=== PATIENT | male | born 1960 | race Caucasian/White ===

== ENCOUNTER 2016-12-29 21:41 | Emergency (ER) | payer OTHER ==
[2016-12-29 21:59] VITALS: BP 147/83; PULSE 97; TEMP 98.2; BMI 28.8
[2016-12-30] MEDS ORDERED: AZITHROMYCIN 250 MG TABLET (FP) PO ONE (00:14)
--- NOTE | 2016-12-30 00:19 | PDOC ---
History of Present Illness - General Chief Complaint: Cold Symptoms Stated Complaint: COLD SYMPTOMS Time Seen by Provider: 12/29/16 22:56 History Source: Patient Exam Limitations: No Limitations - History of Present Illness Initial Comments: 12/30/16 00:14 56yo Male patient w/ PmHx: HTN, presents to ED c/o cough x 5 days with scratchy throat and reportedly subjective fever. Patient reports daughter at home with similar symptoms. Denies n/v/d, CP, Abd pain, Diff breathing, back pain, or any other complaints at this time. Timing/Duration: reports: week Severity: reports: mild Possible Cause: Yes: illness exposure Modifying Factors: worse with: activity, albuterol inhaler, albuterol nebulizer , antibiotics, coughing, lying down, oxygen, rest, other Associated Symptoms: reports: cough, nasal congestion, sore throat. denies: denies symptoms, chest pain/soreness, dizziness, earache, facial pain, fever/ chills, headache, lightheadedness, muscle aches, nasal drainage, shortness of breath, sinus infection, wheezing, other Past History - Travel Traveled outside of the country in the last 30 days: No Close contact w/someone who was outside of country & ill: No - Past Medical History Allergies/Adverse Reactions: Allergies Allergy/AdvReac Type Severity Reaction Status Date / Time No Known Allergies Allergy Verified 12/29/16 21:56 Home Medications: Ambulatory Orders Amlodipine Besylate [Norvasc -] 5 mg PO DAILY 12/29/16 Lisinopril [Prinivil] 20 mg PO DAILY 12/29/16 Azithromycin [Zithromax -] 250 mg PO DAILY #4 tablet 12/30/16 Budesonide [Rhinocort Allergy] 1 spray NS DAILY #1 spray.pump 12/30/16 GI Disorders: Yes (hernia) HTN: Yes - Psycho/Social/Smoking Cessation Hx Anxiety: No Suicidal Ideation: No Smoking History: Never smoked Number of Cigarettes Smoked Daily: 0 Information on smoking cessation initiated: No Hx Alcohol Use: No Drug/Substance Use Hx: No Substance Use Type: None Respiratory Specific PMHX - Complaint Specific PMHX Angina: No Bronchitis: No Pneumonia: No Pulmonary Embolus: No TB (Tuberculosis): No Review of Systems - Review of Systems Able to Perform ROS?: Yes Is the patient limited Tristanian proficient: No Constitutional: Yes: Fever (subjective). No: Chills HEENTM: Yes: Nose Congestion, Throat Pain. No: Ear Discharge, Throat Swelling, Difficulty Swallowing, Mouth Swelling Respiratory: Yes: Cough. No: Shortness of Breath, Stridor, Wheezing, Hemoptysis Cardiac (ROS): No: Chest Pain, Lightheadedness, Palpitations, Syncope, Chest Tightness ABD/GI: No: Diarrhea, Nausea, Vomiting Musculoskeletal: No: Back Pain Integumentary: No: Rash Neurological: No: Headache, Dizziness All Other Systems: Reviewed and Negative *Physical Exam - Vital Signs Last Vital Signs Temp Pulse Resp BP Pulse Ox 98.2 F 97 H 16 147/83 98 12/29/16 21:57 12/29/16 21:57 12/29/16 21:57 12/29/16 21:57 12/29/16 21:57 - Physical Exam General Appearance: Yes: Nourished, Appropriately Dressed. No: Apparent Distress, Mild Distress, Moderate Distress, Severe Distress HEENT: positive: EOMI, ANGELINA, Normal ENT Inspection, Normal Voice, Symmetrical, TMs Normal, Pharynx Normal, Nasal Congestion. negative: Pharyngeal Erythema, Tonsillar Exudate, Tonsillar Erythema, Rhinorrhea, TM Bulging, TM Dull, TM Erythema Neck: positive: Trachea midline, Supple. negative: Stridor, Lymphadenopathy (R) , Lymphadenopathy (L) Respiratory/Chest: positive: Lungs Clear, Normal Breath Sounds. negative: Respiratory Distress, Accessory Muscle Use, Labored Respiration, Rapid RR Cardiovascular: positive: Regular Rhythm, Regular Rate Gastrointestinal/Abdominal: positive: Normal Bowel Sounds, Soft. negative: Distended, Guarding, Rebound, Tenderness Musculoskeletal: positive: Normal Inspection. negative: CVA Tenderness Extremity: positive: Normal Capillary Refill, Normal Inspection, Normal Range of Motion. negative: Pedal Edema, Swelling, Erythema, Inflammation Integumentary: positive: Normal Color, Dry, Warm. negative: Rash, Swelling, Bruising Neurologic: positive: kick boxer II-XII NML intact, Fully Oriented, Alert, Normal Mood/ Affect, Normal Response, Motor Strength 5/5 *DC/Admit/Observation/Transfer Diagnosis at time of Disposition: Acute viral pharyngitis Allergic rhinitis Qualifiers: Allergic rhinitis trigger: unspecified Allergic rhinitis seasonality: seasonal Qualified Code(s): J30.2 - Other seasonal allergic rhinitis - Discharge Dispostion Disposition: HOME Condition at time of disposition: Stable Admit: No - Prescriptions Prescriptions: Budesonide [Rhinocort Allergy] 1 spray NS DAILY #1 spray.pump Azithromycin [Zithromax -] 250 mg PO DAILY #4 tablet - Patient Instructions Printed Discharge Instructions: DI for Viral Upper Respiratory Infection -- Adult, DI for Allergic Rhinitis Additional Instructions: FOLLOW UP WITH DR. PLATT THIS WEEK. CALL TO SCHEDULE APPOINTMENT. TAKE MEDICATIONS PRESCRIBED. DRINK PLENTY FLUIDS (WATER). RETURN IF YOUR SYMPTOMS WORSEN OR ANY CONCERNS FOR FURTHER EVALUATION. Print Language: HUNGARIAN
[2016-12-30] MEDS ORDERED: AZITHROMYCIN 250 MG TABLET (FP) ONE (00:33)
== END 2016-12-30 00:38 | disposition home or self-care (01) ==
LOC: JER 21:41
DX: J30.2 Other seasonal allergic rhinitis (principal); J02.9 Acute pharyngitis, unspecified
CPT/HCPCS: 99282-25

== ENCOUNTER 2018-08-24 04:31 | Emergency (ER) | payer OTHER ==
[2018-08-24 06:40] VITALS: BMI 29.7
--- NOTE | 2018-08-24 07:44 | PDOC ---
History of Present Illness - History of Present Illness Initial Comments: This patient is a 58 year old Nepali speaking male with PMHx of HTN, who presents with lightheadedness. Patient states that for the past week he was feeling down so he made an appointment to see his PMD yesterday who noted his blood pressure was a little high and put him on new medication (Lisinopril 100 mg & medication for depression). He stated that he feels lightheaded/ off- balance when he brings his head down then back up. He also endorses associated blurry vision during his dizzy spells. He states that what brought him to the ED was when he got up to pee at around 3:30 in the morning and felt lightheaded. He also notes that sometimes after urinating he still has the urge to pee. He currently states that he feels a little weak and anxious but denies any chest pain. Denies any blood per rectum or bladder. PCP: Juanita Tsai 08/24/18 10:29 <Verena Hirsch - Last Filed: 08/24/18 10:29> <Kike Tavares - Last Filed: 08/24/18 11:27> - General Chief Complaint: Blood Pressure Problem Stated Complaint: BLOOD PRESSURE PROBLEM Time Seen by Provider: 08/24/18 07:43 Past History <Verena Hirsch - Last Filed: 08/24/18 10:29> - Past Medical History GI Disorders: Yes (hernia) HTN: Yes - Immunization History Immunization Up to Date: Yes - Suicide/Smoking/Psychosocial Hx Smoking History: Never smoked Have you smoked in the past 12 months: No Number of Cigarettes Smoked Daily: 0 Information on smoking cessation initiated: No Hx Alcohol Use: No Drug/Substance Use Hx: No Substance Use Type: None <Kike Tavares - Last Filed: 08/24/18 11:27> - Past Medical History Allergies/Adverse Reactions: Allergies Allergy/AdvReac Type Severity Reaction Status Date / Time No Known Allergies Allergy Verified 08/24/18 06:39 Home Medications: Ambulatory Orders Lisinopril [Prinivil] 20 mg PO DAILY 12/29/16 Review of Systems - Review of Systems Comments:: CONSTITUTIONAL: No fever, no chills, no fatigue EYES: +blurry vision ENT: No ear pain, no sore throat CARDIOVASCULAR: No chest pain, RESPIRATORY: No cough, no SOB GI: No abdominal pain, no nausea, no vomiting, no constipation, no diarrhea GENITOURINARY: +frequent urge. No dysuria, no frequency, no hematuria MUSKULOSKELETAL: +back pain (chronic - scoliosis) , no joint pain, no myalgias SKIN: No rash NEURO: +dizziness, +headache <Verena Hirsch - Last Filed: 08/24/18 10:29> *Physical Exam - Vital Signs Last Vital Signs Temp Pulse Resp BP Pulse Ox 98.0 F 92 H 18 151/76 100 08/24/18 04:31 08/24/18 04:31 08/24/18 04:31 08/24/18 04:31 08/24/18 04:31 - Physical Exam Comments: CONSTITUTIONAL: Well-appearing; well-nourished; in no apparent distress HEAD: Normocephalic; atraumatic EYES: PERRL; EOM intact ENMT: External appears normal; normal oropharynx CARD: Normal S1, S2; no murmurs, rubs, or gallops RESP: Normal chest excursion with respiration; breath sounds clear and equal bilaterally; no wheezes, rhonchi, or rales ABD: Soft, non-distended; non-tender; no palpable organomegaly, no palpable hernias EXT: Normal ROM in all four extremities; non-tender to palpation; distal pulses intact SKIN: Warm, dry, no rash NEURO: No focal neurological deficiencies. 08/24/18 10:26 <Verena Hirsch - Last Filed: 08/24/18 10:29> - Vital Signs Last Vital Signs Temp Pulse Resp BP Pulse Ox 98.0 F 92 H 18 151/76 100 08/24/18 04:31 08/24/18 04:31 08/24/18 04:31 08/24/18 04:31 08/24/18 04:31 <Kike Tavares - Last Filed: 08/24/18 11:27> Moderate Sedation - Procedure Monitoring Vital Signs: Procedure Monitoring Vital Signs Temperature 98.0 F 08/24/18 04:31 Pulse Rate 92 H 08/24/18 04:31 Respiratory Rate 18 08/24/18 04:31 Blood Pressure 151/76 08/24/18 04:31 O2 Sat by Pulse Oximetry (%) 100 08/24/18 04:31 <Verena Hirsch - Last Filed: 08/24/18 10:29> - Procedure Monitoring Vital Signs: Procedure Monitoring Vital Signs Temperature 98.0 F 08/24/18 04:31 Pulse Rate 92 H 08/24/18 04:31 Respiratory Rate 18 08/24/18 04:31 Blood Pressure 151/76 08/24/18 04:31 O2 Sat by Pulse Oximetry (%) 100 08/24/18 04:31 <Kike Tavares - Last Filed: 08/24/18 11:27> Heart Score/ECG Review - ECG Intrepretation Comment:: EKG Interpretation -- taken on 24-Aug-2018 at 8:40:16 Vent. rate 80 bpm Normal sinus rhythm T wave abnormality 08/24/18 09:51 <Verena Hirsch - Last Filed: 08/24/18 10:29> ED Treatment Course - LABORATORY CBC & Chemistry Diagram: 08/24/18 08:20 08/24/18 08:20 - ADDITIONAL ORDERS Additional order review: 08/24/18 08:20 RBC 4.86 MCV 85.0 MCHC 33.4 RDW 12.7 MPV 10.5 Neutrophils % 65.4 Lymphocytes % 25.8 D Monocytes % 6.3 Eosinophils % 1.3 Basophils % 1.2 D <Verena Hirsch - Last Filed: 08/24/18 10:29> - LABORATORY CBC & Chemistry Diagram: 08/24/18 08:20 08/24/18 08:20 <Kike Tavares - Last Filed: 08/24/18 11:27> Medical Decision Making - Medical Decision Making 08/24/18 11:24 Patient is a well-appearing 58-year-old male who presents to the ER with several episodes of dizziness upon rising from supine position consistent with orthostasis. Patient also complains of generalized weakness and malaise associated with generalized anxiety. Patient was recently seen and evaluated by his primary care physician prescribed fluoxetine as well as lisinopril/ hydrochlorothiazide. In the ER, patient is asymptomatic without focal neurological deficits. CBC reveals no evidence of anemia. CMP reveals no evidence of significant electrolyte abnormalities. EKG is normal sinus without evidence of LVH or acute dysrhythmia. Inverted T waves in 3 and aVF are noted of unknown duration. Patient's symptoms are not consistent with ACS or PE. I don 't believe cardiac enzyme testing is indicated at this time. Patient is advised to maintain a blood pressure log and allow for several moments of the declination when standing from a lying position. Will discharge with cardiology and PMD follow-up further investigation. <Kike Tavares - Last Filed: 08/24/18 11:27> *DC/Admit/Observation/Transfer - Attestations Scribe Attestion: 08/24/18 09:12 Documentation prepared by Verena Hirsch, acting as medical collections specialist for Kike Tavares MD. <Verena Hirsch - Last Filed: 08/24/18 10:29> - Attestations Physician Attestion: 08/24/18 11:24 The documentation was prepared by the scribe under my direct supervision. I have reviewed the documentation which correctly represents the findings, medical decision-making and critical action taken by me. <Kike Tavares - Last Filed: 08/24/18 11:27> Diagnosis at time of Disposition: Dizziness, Weakness - Discharge Dispostion Disposition: HOME Condition at time of disposition: Stable - Referrals Referrals: Patrice Martínez MD [Staff Physician] - - Patient Instructions Printed Discharge Instructions: DI for Dizziness-Nonvertigo - Post Discharge Activity
[2018-08-24 08:48] LABS: BASO % 1.2 % (0-2.0); EOS % 1.3 % (0-4.5); HEMATOCRIT 41.3 % (35.4-49); HEMOGLOBIN 13.8 GM/dL (11.7-16.9); LYMPH % 25.8 % (8-40); MCH 28.4 pg (25.7-33.7); MCHC 33.4 g/dl (32.0-35.9); MEAN PLT VOLUME 10.5 fl (7.5-11.1); MONO % 6.3 % (3.8-10.2); NEUT % 65.4 % (42.8-82.8); PLATELET COUNT 228 K/MM3 (134-434); RBC 4.86 M/mm3 (4.00-5.60); RDW 12.7 % (11.9-15.9); WHITE BLOOD COUNT 9.4 K/mm3 (4.0-10.0)
[2018-08-24 09:16] VITALS: BP 152/84; PULSE 83; TEMP 98.7
[2018-08-24 09:21] LABS: ALBUMIN 4.2 g/dl (3.4-5.0); ALK PHOS 100 U/L (45-117); ANION GAP 8 MMOL/L (8-16); BILIRUBIN,TOTAL 0.7 mg/dL (0.2-1); BLOOD UREA NITROGEN 12 mg/dL (7-18); CALCIUM 8.8 mg/dL (8.5-10.1); CHLORIDE 103 mmol/L (98-107); CO2 27 mmol/L (21-32); CREATININE 1.1 mg/dL (0.55-1.3); GLUCOSE,RANDOM 167 mg/dL (74-106); MAGNESIUM 2.3 mg/dL (1.8-2.4); SGOT/AST 14 U/L (15-37); SGPT/ALT 29 U/L (13-61); SODIUM 138 mmol/L (136-145); TOT PROT 7.6 g/dl (6.4-8.2)
--- NOTE | 2018-08-24 11:40 | EKG ---
Test Reason : Blood Pressure : / mmHG Vent. Rate : 080 BPM Atrial Rate : 080 BPM P-R Int : 138 ms QRS Dur : 082 ms QT Int : 366 ms P-R-T Axes : 043 003 -18 degrees QTc Int : 422 ms NORMAL SINUS RHYTHM T WAVE ABNORMALITY, CONSIDER INFERIOR ISCHEMIA ABNORMAL ECG NO PREVIOUS ECGS AVAILABLE Confirmed by GILBERT FRYE MD ([id number]) on 08/24/2018 11:40:06 AM Referred By: Confirmed By:GILBERT FRYE MD
== END 2018-08-24 11:58 | disposition home or self-care (01) ==
LOC: JER 04:31
DX: R42 Dizziness and giddiness (principal); R53.1 Weakness; I10 Essential (primary) hypertension
CPT/HCPCS: 36415; 80053; 83735; 85025; 93005; 93010; 99281-25

== ENCOUNTER 2022-01-04 11:59 | Emergency (ER) | payer OTHER ==
[2022-01-04 12:24] VITALS: BP 148/74; PULSE 91; TEMP 100.4; BMI 28.1
[2022-01-04] MEDS ORDERED: ACETAMINOPHEN 1000 MG/100 ML BAG IVPB ONE (12:58)
[2022-01-04] MEDS ORDERED: SODIUM CHLORIDE 0.9% 500 ML INFUS.BAG IV ONE (12:58)
[2022-01-04 13:27] LABS: URINE APPEARANCE CLEAR; URINE BILIRUBIN NEGATIVE (NEGATIVE); URINE COLOR YELLOW; URINE GLUCOSE (UA) NEGATIVE (NEGATIVE); URINE KETONE NEGATIVE (NEGATIVE); URINE LEUK ESTERASE NEGATIVE (NEGATIVE); URINE NITRITE NEGATIVE (NEGATIVE); URINE PROTEIN NEGATIVE (NEGATIVE); URINE UROBILINOGEN 0.2 mg/dL (0.2-1.0)
[2022-01-04 13:28] LABS: BASO % 0.6 % (0-2.0); EOS % 0.3 % (0-4.5); HEMOGLOBIN 14.7 GM/dL (11.7-16.9); LYMPH % 14.7 % (8-40); MCH 29.8 pg (25.7-33.7); MCHC 34.1 g/dl (32.0-35.9); MEAN CELL VOLUME 87.4 fl (80-96); MEAN PLT VOLUME 9.9 fl (7.5-11.1); MONO % 7.2 % (3.8-10.2); NEUT % 77.2 % (42.8-82.8); PLATELET COUNT 175 10^3/uL (134-434); RBC 4.92 M/mm3 (4.00-5.60); RDW 13.1 % (11.9-15.9); WHITE BLOOD COUNT 8.1 K/mm3 (4.0-10.0)
[2022-01-04 13:49] LABS: ALBUMIN 3.5 g/dl (3.4-5.0); BLOOD UREA NITROGEN 11.8 mg/dL (7-18); CALCIUM 8.1 mg/dL (8.5-10.1)
[2022-01-04] MEDS ORDERED: ACETAMINOPHEN INJECTION 100 ML IVPB ONE (13:51)
[2022-01-04 13:53] LABS: BILIRUBIN,TOTAL 2.7 mg/dL (0.2-1); CREATININE 1.1 mg/dL (0.55-1.3); TOT PROT 6.8 g/dl (6.4-8.2)
== END 2022-01-04 15:25 | disposition home or self-care (01) ==
LOC: JER 11:59
PROC: 3E033GC Introduction of Other Therapeutic Substance into Peripheral Vein, Percutaneous Approach (ICD-10-PCS; principal; 2022-01-04)
DX: R25.2 Cramp and spasm (principal)
CPT/HCPCS: 36415; 80053; 81003; 85025; 87086; 99284-25

== ENCOUNTER 2023-10-24 12:51 | Emergency (ER) | payer OTHER ==
[2023-10-24 12:58] VITALS: TEMP 98.7
[2023-10-24 14:35] LABS: BASO % 0.9 % (0-2.0); EOS % 0.3 % (0-4.5); HEMATOCRIT 42.9 % (35.4-49); HEMOGLOBIN 14.4 GM/dL (11.7-16.9); LYMPH % 14.9 % (8-40); MCH 29.2 pg (25.7-33.7); MCHC 33.7 g/dl (32.0-35.9); MEAN CELL VOLUME 86.7 fl (80-96); MEAN PLT VOLUME 10.5 fl (7.5-11.1); MONO % 5.6 % (3.8-10.2); NEUT % 78.3 % (42.8-82.8); PLATELET COUNT 234 10^3/uL (134-434); RBC 4.95 M/mm3 (4.00-5.60); RDW 12.8 % (11.9-15.9); WHITE BLOOD COUNT 8.2 K/mm3 (4.0-10.0)
[2023-10-24 14:52] LABS: POTASSIUM 3.4 mmol/L (3.5-5.1)
[2023-10-24 14:54] LABS: CALCIUM 9.3 mg/dL (8.5-10.1)
[2023-10-24 14:55] LABS: ALBUMIN 4.6 g/dl (3.4-5.0); BLOOD UREA NITROGEN 19.4 mg/dL (7-18); MAGNESIUM 2.2 mg/dL (1.8-2.4)
[2023-10-24 14:58] LABS: CREATININE 1.2 mg/dL (0.55-1.3)
[2023-10-24 15:00] LABS: BILIRUBIN,TOTAL 1.9 mg/dL (0.2-1); TOT PROT 7.7 g/dl (6.4-8.2)
[2023-10-24 16:09] LABS: POTASSIUM 3.2 mmol/L (3.5-5.1)
[2023-10-24 16:10] LABS: CALCIUM 9.4 mg/dL (8.5-10.1)
[2023-10-24 16:11] LABS: BLOOD UREA NITROGEN 18.7 mg/dL (7-18)
[2023-10-24 16:14] LABS: CREATININE 1.2 mg/dL (0.55-1.3)
[2023-10-24] MEDS ORDERED: POTASSIUM CHLORIDE ORAL LIQUID 20 MEQ/15 ML PO ONE (16:20)
[2023-10-24] MEDS ORDERED: POTASSIUM CHLORIDE ORAL LIQUID 20 MEQ/15 ML ONE (16:28)
[2023-10-24 17:00] VITALS: BP 143/77; PULSE 68; RESP 16
== END 2023-10-24 17:05 | disposition home or self-care (01) ==
LOC: JER 12:51
DX: R00.2 Palpitations (principal); I10 Essential (primary) hypertension; R73.9 Hyperglycemia, unspecified; Z20.822 Contact with and (suspected) exposure to COVID-19
CPT/HCPCS: 0241U-QW; 36415; 71046-TC-FY; 80048; 80053; 82962; 83735; 84439; 84443; 84484; 85025; 93005; 93010; 99285-25